=== PATIENT | female | born 1965 | race Caucasian/White ===

== ENCOUNTER 2017-03-05 21:06 | Inpatient (IN) | payer MEDICARE ==
[~2017-03-05] VITALS: Ht 160 cm; Wt 127.0 kg
[2017-03-05 21:07] VITALS: BP 183/72; PULSE 65; RESP 16; TEMP 98.1; O2SAT 97
[2017-03-05 22:30] VITALS: RESP 18; O2SAT 98
[2017-03-05] MEDS ORDERED: LANTUS2P SQ (22:40)
[2017-03-05] MEDS ORDERED: CARV3.125 PO (22:40)
[2017-03-05] MEDS ORDERED: VALS1TAB64 PO (22:40)
[2017-03-05] MEDS ORDERED: CLOP75TA PO (22:40)
[2017-03-05] MEDS ORDERED: LYRI150C PO (22:40)
[2017-03-05] MEDS ORDERED: METF1000 PO (22:40)
--- NOTE | 2017-03-05 22:42 | PD ---
HPI Chief Complaint: Skin Problem Time Seen by Provider: 22:07 Travel History International Travel<30 days: No Contact w/Intl Traveler<30days: No Traveled to known affect area: No History of Present Illness HPI The patient is a 52 year old female who presents to the [facility] emergency department with a history of diabetic ulcer on the right foot that she reports that she noticed in the hospital when she got up to walk while she was admitted for a diabetic hyperglycemic event. She reports that she has a known ulcer on the left foot, however she realized that she was bleeding from the right foot and at that time the ulcer was identified. She reports that she has been followed by an orthopedic physician regarding this and on Sunday of this past week a cast was applied. The patient reports that she completed a course of antibiotic approximate 2 weeks ago. She reports that her blood sugar recently has been better controlled with her blood sugar earlier today at 121. The patient reports that she is visiting from [place]. She is here for a convention. The patient is on Plavix for a history of stent placement in 2011. The patient reports that she became concerned today when she noticed that she was bleeding through the bottom of the cast. Otherwise on review of systems, the patient denies any recent fevers or chills, cough, congestion, neck pain, chest pain, shortness of breath, abdominal pain, vomiting, diarrhea, urinary symptoms, or neurologic symptoms. [facility] Past Medical History Narrative Medical The patient's past medical history is significant for peripheral arterial disease status post stent placement in the left leg, history of coronary artery disease status post cardiac stent placement 2, hypertension, diabetes mellitus , hyperlipidemia, obesity, history of ITP status post splenectomy. High Cholesterol: Yes Chest Pain: Yes (CARDIAC STENT) Coronary Artery Disease: Yes Diabetes: Yes Patient Takes Glucophage: No Diminished Hearing: No Hypertension: Yes Tetanus Vaccination: Unknown Influenza Vaccination: No ?: Not Tubal Ligation: Yes Past Surgical History Narrative Surgical The patient's past surgical history is significant for tonsillectomy, appendectomy, cholecystectomy, splenectomy related to ITP, reconstruction of bilateral ankles, right knee meniscus repair, bilateral tubal ligation, cardiac catheterization with 2 stents placed, discectomy times to lumbar region, left leg stent, amputation of 2 toes on the right foot in October 2014, one and a half toes amputated on the left foot in April 2015. Appendectomy: Yes Cholecystectomy: Yes Tonsillectomy: Yes Other Surgery: Yes (DISCECTOMY, SPLEEN REMOVED) Social History Alcohol Use: No Tobacco Use: No (quit smoking after smoking a pack a day for 30 pack years) Substance Use: No Allergies-Medications (Allergen,Severity, Reaction): Coded Allergies: Bactrim (Verified Allergy, Severe, 03/05/17) Flexeril (Verified Allergy, Severe, 03/05/17) Keflex (Verified Allergy, Severe, 03/05/17) Vancomycin (Verified Allergy, Severe, 03/05/17) Reported Meds & Prescriptions Reported Meds & Active Scripts Active Reported Lantus Inj (Insulin Glargine) 1,000 Unit/10 Ml Vial 75 Units SQ BID Valsartan 80 Mg Tab 80 Mg PO DAILY Clopidogrel (Clopidogrel Bisulfate) 75 Mg Tab 75 Mg PO DAILY Lyrica (Pregabalin) 150 Mg Cap 150 Mg PO BID Metformin (Metformin HCl) 1,000 Mg Tab 1,000 Mg PO BIDPC With meals Coreg (Carvedilol) 3.125 Mg Tab 3.125 Mg PO BID Review of Systems Except as stated in HPI: all other systems reviewed are Neg General / Constitutional: No: Fever Eyes: No: Visual changes HENT: No: Headaches Cardiovascular: No: Chest Pain or Discomfort Respiratory: No: Shortness of Breath Gastrointestinal: No: Abdominal Pain Genitourinary: No: Dysuria Musculoskeletal: No: Pain Skin: Positive Other (bleeding from right foot), No Rash Neurologic: No: Weakness Psychiatric: No: Depression Endocrine: No: Polydipsia Hematologic/Lymphatic: No: Easy Bruising Physical Exam Narrative General: The patient is a well-developed well-nourished female in no acute distress. Head and Neck exam: Head is normocephalic atraumatic. Eyes: EOMI, pupils are equal round and reactive to light. Nose: Midline septum with pink mucous membranes Mouth: Dentition unremarkable. Moist mucus membranes. Posterior oropharynx is not erythematous. No tonsillar hypertrophy. Uvula midline. Airway patent. Neck: No palpable lymphadenopathy. No nuchal rigidity. No thyromegaly. Cardiovascular: Regular rate and rhythm without murmurs, gallops, or rubs. Lungs: Clear to auscultation bilaterally. No wheezes, rhonchi, or rales. Abdomen: Soft, without tenderness to palpation in all 4 quadrants of the abdomen. No guarding, rebound, or rigidity. Normal bowel sounds are audible. No tenderness on palpation of McBurney's point. Extremities: No clubbing or cyanosis. The patient has trace to 1+ edema bilateral lower extremities. 2+ pulses in bilateral upper extremities. The left lower extremity has a walking boot in place related to her healing diabetic ulcer on the left. The patient has a cast in place on the right. The patient is noted to have blood seeping through the bottom of the cast. Back: No costovertebral angle tenderness to palpation. Neurologic Exam: Grossly nonfocal. Skin Exam: No rash noted. On examination of the right foot after the cast was removed. There is no active bleeding. The patient has a 4.5 x 5 cm area of ulceration noted. 4-1/2 cm of the area of ulceration is approximately half a centimeter deep into the soft tissue of the foot. There is a foul odor associated with the wound. There is some foot edema. The patient has her second and third toe amputated. Data Data Last Documented VS Vital Signs Date Time Temp Pulse Resp B/P Pulse Ox O2 Delivery O2 Flow Rate FiO2 03/05/17 22:30 18 98 Room Air 03/05/17 21:07 98.1 65 183/72 Orders Complete Blood Count With Diff (03/05/17 22:26) Basic Metabolic Panel (Bmp) (03/05/17 22:26) Prothrombin Time / Inr (Pt) (03/05/17 22:26) Act Partial Throm Time (Ptt) (03/05/17 22:26) C-Reactive Protein (Crp) (03/05/17 22:26) Iv Access Insert/Monitor (03/05/17 22:26) Ecg Monitoring (03/05/17 22:26) Oximetry (03/05/17 22:26) Foot, Complete ([id number]) (03/05/17 23:04) Wound Culture And Gram Stain (03/05/17 23:05) Wound Care (03/05/17 23:06) Mupirocin 2% Oint (Bactroban 2% Oint) (03/05/17 23:15) Blood Culture (03/05/17 23:45) Lactic Acid (03/05/17 23:45) Aztreonam Inj (Azactam Inj) (03/05/17 23:45) Clindamycin Inj (Cleocin Inj) (03/05/17 23:45) Metronidazole 500 Mg Inj (Flagyl 500 Mg (03/05/17 23:45) Sodium Chlor 0.9% 1000 Ml Inj (Ns 1000 M (03/06/17 00:30) Admit Order (Ed Use Only) (03/06/17 00:32) Labs Laboratory Tests Test 03/05/17 03/05/17 23:01 23:59 Prothrombin Time 10.7 SEC Prothromb Time International 1.0 RATIO Ratio Activated Partial 25.7 SEC Thromboplast Time White Blood Count 19.7 TH/MM3 Red Blood Count 4.50 MIL/MM3 Hemoglobin 12.8 GM/DL Hematocrit 40.1 % Mean Corpuscular Volume 89.2 FL Mean Corpuscular Hemoglobin 28.6 PG Mean Corpuscular Hemoglobin 32.0 % Concent Red Cell Distribution Width 14.8 % Platelet Count 438 TH/MM3 Mean Platelet Volume 10.1 FL Neutrophils (%) (Auto) 59.5 % Lymphocytes (%) (Auto) 29.9 % Monocytes (%) (Auto) 7.2 % Eosinophils (%) (Auto) 2.5 % Basophils (%) (Auto) 0.9 % Neutrophils # (Auto) 11.7 TH/MM3 Lymphocytes # (Auto) 5.9 TH/MM3 Monocytes # (Auto) 1.4 TH/MM3 Eosinophils # (Auto) 0.5 TH/MM3 Basophils # (Auto) 0.2 TH/MM3 CBC Comment AUTO DIFF Differential Total Cells 100 Counted Neutrophils % (Manual) 62 % Band Neutrophils % 5 % Lymphocytes % 25 % Monocytes % 7 % Eosinophils % 1 % Neutrophils # (Manual) 13.2 TH/MM3 Differential Comment FINAL DIFF MANUAL Toxic Vacuolation PRESENT Platelet Estimate NORMAL Platelet Morphology Comment ENLARGED Sodium Level 134 MEQ/L Potassium Level 6.0 MEQ/L Chloride Level 103 MEQ/L Carbon Dioxide Level 28.0 MEQ/L Anion Gap 3 MEQ/L Blood Urea Nitrogen 36 MG/DL Creatinine 1.27 MG/DL Estimat Glomerular Filtration 44 ML/MIN Rate Random Glucose 274 MG/DL Calcium Level 9.3 MG/DL C-Reactive Protein 1.40 MG/DL Lactic Acid Level 1.2 mmol/L MDM Medical Decision Making Medical Screen Exam Complete: Yes Emergency Medical Condition: Yes Medical Record Reviewed: Yes Interpretation(s) Last Impressions Foot X-Ray 03/05/17 9345 Signed Impressions: Service Date/Time: Sunday, March 05, 2017 23:18 - CONCLUSION: 1. There is a wound on the plantar aspect of the foot. There is no adjacent soft tissue air or foreign body visualized. 2. Severe dorsal and medial foot soft tissue swelling. 3. There are degenerative changes throughout the hindfoot and midfoot with likely disruption of the Lisfranc joint. Kenney Mendes MD Differential Diagnosis Coagulopathy associated with bleeding, versus bleeding wound related to increased time on her feet, versus infection Narrative Course During the course of the patients emergency department visit, the patients history, examination, and differential diagnosis were reviewed with the patient. The patient had IV access obtained and blood work sent for analysis. The patient was placed on a gymnastics coach or instructor with oximetry and blood pressure monitoring. The compliance field technician was called to remove the patient's cast. Once the cast was removed the patient's wound was noted to be odorous. The patient's wound was weeping and a wound culture was collected. The patient's wound will be rewrapped after Bactroban ointment is applied The patient was initially provided metronidazole 500 mg IV, clindamycin 900 mg IV, Azactam 2 g IV given her allergy history. The patient was given normal saline 1 L IV fluid bolus per The patients laboratory studies were reviewed and remarkable for a white count of 19.7, hemoglobin 12.8, platelets 438 with neutrophils 62, bands 5, lymphocytes 25, toxic vacuolization is present. Basic metabolic profile is remarkable for sodium of 134, potassium 6.0 with slight hemolysis, BUN 36, creatinine 1.27, glucose 274, lactic acid 1.2, C-reactive protein 1.4, PT 10.7, PTT 25.7. Radiology studies were reviewed and remarkable for an x-ray of the right foot that shows there is a wound on the plantar aspect of the foot. There is no adjacent soft tissue air or foreign body visualized, severe dorsal and medial soft tissue foot swelling is noted. There are degenerative changes throughout the hindfoot and midfoot with likely disruption of the Lisfranc joint. The patients results were discussed with the patient, including the plan of care. I explained that further testing and/ or monitoring is indicated based on the patients history, examination, and/ or laboratory findings. Therefore, I recommended admission for additional evaluation. The patient expressed understanding and was agreeable with this plan. The patient was admitted to the hospital in stable condition and [facility] Sepsis Criteria SIRS Criteria (2 or more): WBC > 91193, < 4000 or > 10% bands Physician Communication Physician Communication The patient's case was discussed with Dr. Sal who did agree to admit the patient for further evaluation and treatment at this time. Diagnosis Primary Impression: Foot ulcer due to secondary DM Additional Impression: Infected ulcer of skin Qualified Code: L98.492 - Infected ulcer of skin, with fat layer exposed Admitting Information Admitting Physician Requests: Admit Nahomi Kwon MD Mar 05, 2017 22:42
[2017-03-05] MEDS ORDERED: MUPIROCIN 2% OINT 22 GM TUBE TOPICAL ONE (23:15)
[2017-03-05 23:39] LABS: AUTOMATED NEUTROPHIL # 11.7 TH/MM3 (1.8-7.7); BASOPHIL # 0.2 TH/MM3 (0-0.2); BASOPHIL % 0.9 % (0.0-2.0); EOSINOPHIL # 0.5 TH/MM3 (0-0.4); EOSINOPHIL % 2.5 % (0.0-4.0); HEMATOCRIT 40.1 % (35.0-46.0); LYMPH % 29.9 % (9.0-44.0); LYMPHOCYTE # 5.9 TH/MM3 (1.0-4.8); MEAN CELL VOLUME 89.2 FL (80.0-100.0); MEAN CORPUSCULAR HEMOGLOBIN 28.6 PG (27.0-34.0); MONO % 7.2 % (0.0-8.0); NEUT % 59.5 % (16.0-70.0); PLATELET COUNT 438 TH/MM3 (150-450); RED CELL DISTRIBUTION WIDTH 14.8 % (11.6-17.2); WHITE BLOOD COUNT 19.7 TH/MM3 (4.0-11.0)
[2017-03-05 23:42] LABS: HEMO FLAGS AUTO DIFF
[2017-03-05] MEDS ORDERED: CLINDAMYCIN INJ 900 MG in SODIUM CHLORIDE 0.9% INJ 100 ML IV STA (23:45)
[2017-03-05] MEDS ORDERED: AZTREONAM INJ 2,000 MG in SODIUM CHLORIDE 0.9% INJ 100 ML IV STA (23:45)
[2017-03-05] MEDS ORDERED: metroNIDAZOLE 500 MG INJ 100 ML IV STA (23:45)
--- NOTE | 2017-03-05 23:49 | RADRPT ---
EXAM DATE/TIME: 03/05/2017 23:18 [facility] COMPARISON: No previous studies available for comparison. INDICATIONS : Right foot pain and swelling. Patient states she has had an ulcer on the bottom of her foot that has started bleeding. MEDICAL HISTORY : Diabetes mellitus type II. SURGICAL HISTORY : Right foot, second and third digit amputations. ENCOUNTER: Initial ACUITY: 2 days PAIN SCORE: 8/10 LOCATION: Right foot. FINDINGS: 3 views of the right foot demonstrate absence of the second and third digit. Lisfranc joint appears d isrupted. There are degenerative changes throughout the midfoot particularly at the second and third tarsometatarsal joints. There is joint space narrowing and osteophytes at the first metatarsophalange al joint. Soft tissue swelling is present medially along the dorsal aspect of the foot. Skin changes on the plantar aspect likely correlate with the open wound. There is no radiopaque foreign body or so ft tissue air visualized. CONCLUSION: 1. There is a wound on the plantar aspect of the foot. There is no adjacent soft tissue air or foreig n body visualized. 2. Severe dorsal and medial foot soft tissue swelling. 3. There are degenerative changes throughout the hindfoot and midfoot with likely disruption of the L isfranc joint. Kenney Mendes MD on March 05, 2017 at 23:45 Board Certified Radiologist. This report was verified electronically.
[2017-03-05 23:56] LABS: APTT (PATIENT) 25.7 SEC (24.3-30.1); PROTHROMBIN TIME - PATIENT 10.7 SEC (9.8-11.6)
[2017-03-06] VITALS (9 sets, daily range): BP systolic 96–152; BP diastolic 54–81; PULSE 58–77; RESP 16–19; TEMP 98.1–98.3; O2SAT 93–96
[2017-03-06] MEDS ORDERED: SODIUM CHLOR 0.9% 1000 ML INJ 1,000 ML IV ONE (00:30)
[2017-03-06] MEDS ORDERED: NALOXONE HCL 0.4 MG/ML AMP IV PRN (00:45)
[2017-03-06] MEDS ORDERED: SODIUM CHLORIDE 0.9% FLUSH 10 ML FLUSH IV FLUSH PRN (00:45)
[2017-03-06] MEDS ORDERED: DEXTROSE 50% IN WATER 50 ML VIAL(D50) IV PRN (00:45)
[2017-03-06] MEDS ORDERED: GLUCAGON 1 MG/ML VIAL OTHER PRN (00:45)
[2017-03-06 00:52] LABS: BANDS 5 % (0-6); EOSINOPHILS 1 % (0-4); NEUTROPHIL # MANUAL DIFF 13.2 TH/MM3 (1.8-7.7); PLATELET ESTIMATE SMEAR NORMAL (NORMAL); PLATELET MORPHOLOGY ENLARGED (NORMAL); POLYS (SEG NEUTROPHILS) 62 % (16-70); SCAN/DIFF FINAL DIFF MANUAL; WBC DIFF SAMPLE 100
[2017-03-06 00:53] LABS: TOXIC VACUOLATION PRESENT (NONE SEEN)
[2017-03-06 02:28] LABS: BICARBONATE 20.3 MEQ/L (21.0-32.0); POTASSIUM 3.5 MEQ/L (3.5-5.1)
[2017-03-06 02:39] LABS: CALCIUM-PROTEIN CORRECTED 6.8 MG/DL (8.5-10.1)
[2017-03-06] MEDS ORDERED: CALCIUM GLUCONATE 10% 1 GM/10 ML VIAL IV PUSH ONE (03:00)
--- NOTE | 2017-03-06 05:50 | HHI.HP ---
[facility] Phys[facility] Non-Staff Admission Diagnosis Dm foot ulcer infection Diagnoses: Travel History International Travel<30 Days: No Contact w/Intl Traveler <30 Da: No Traveled to Known Affected Are: No History of Present Illness History from patient, ER physician communication, and review of medical records. Patient reported that she came to the hospital because she was having bleeding through her foot cast. She states that about a week ago, she has had debridement of her diabetic ulcer on this left foot in [place] where she is from. She states that after the debridement, cost was placed on the left foot up to knees. She states that the ulcer was getting worse after this with foul smelling discharge which she could smell through the cast. She also started noticing bloody discharge starting yesterday morning. She denies any fever. Denies any other symptoms. Apart from the above, patient denies any recent fever/nausea/vomiting/diarrhea/ urinary burning or pain on urination. She denies any recent hematemesis/hematochezia/melena/hematuria. Patient reports that she is traveling here from [place] by bus line. about 9 hrs bus ride to here - arrived on sunday, yesterday Review of Systems Except as stated in HPI: all other systems reviewed are Neg Past Family Social History Past Medical History htn dm cad s/p stent- 2011 ITP- s/p splenectomy left heel ulcer- healing Past Surgical History left foot ulcer debrided about one week ago coronary angiogram and stenting tonsillectomy appendectomy splenectomy cholecystectomy reconstructive sx on ligaments of both ankles torn miniscus repair right knee amputation of toes bilaterally - right is 2nd and 3rd, left is half of 2nd and all of 3rd tubal ligation Allergies: Coded Allergies: Bactrim (Verified Allergy, Severe, 03/05/17) Flexeril (Verified Allergy, Severe, 03/05/17) Keflex (Verified Allergy, Severe, 03/05/17) Vancomycin (Verified Allergy, Severe, 03/05/17) Family History dm- most members father- heart dx brother- stroke Social History quit smoking 2.5 yrs ago, used to smoke about 1 ppd no drinking etoh no drugs Physical Exam Vital Signs Vital Signs Date Time Temp Pulse Resp B/P Pulse Ox O2 Delivery O2 Flow Rate FiO2 03/06/17 04:30 59 18 96/54 96 Room Air 03/06/17 03:14 66 18 109/55 96 Room Air 03/06/17 02:24 62 18 152/71 96 Room Air 03/06/17 00:00 58 18 139/64 96 Room Air 03/05/17 22:30 18 98 Room Air 03/05/17 21:07 98.1 65 16 183/72 97 Room Air Physical Exam GENERAL: This is a well-nourished, well-developed patient, in no apparent distress. SKIN: redness and sweelling around right foot seen through under the surgical bandage HEAD: Atraumatic. Normocephalic. No temporal or scalp tenderness. EYES: No scleral icterus. No injection or drainage. ENT: Nose without bleeding, purulent drainage or septal hematomaAirway patent. NECK: Trachea midline. No JV CARDIOVASCULAR: Regular rate and rhythm without murmurs, gallops, or rubs. RESPIRATORY: Clear to auscultation. Breath sounds equal bilaterally. No wheezes , rales, or rhonchi. GASTROINTESTINAL: Abdomen soft, non-tender, nondistended. No guarding. MUSCULOSKELETAL: Extremities without clubbing. RLE foot in surgical bandage, foul smelling discharge, RLE in boot NEUROLOGICAL: Awake and alert.Normal speech Laboratory Laboratory Tests Test 03/05/17 03/05/17 03/06/17 23:01 23:59 01:25 Prothrombin Time 10.7 Prothromb Time International 1.0 Ratio Activated Partial 25.7 Thromboplast Time White Blood Count 19.7 Red Blood Count 4.50 Hemoglobin 12.8 Hematocrit 40.1 Mean Corpuscular Volume 89.2 Mean Corpuscular Hemoglobin 28.6 Mean Corpuscular Hemoglobin 32.0 Concent Red Cell Distribution Width 14.8 Platelet Count 438 Mean Platelet Volume 10.1 Neutrophils (%) (Auto) 59.5 Lymphocytes (%) (Auto) 29.9 Monocytes (%) (Auto) 7.2 Eosinophils (%) (Auto) 2.5 Basophils (%) (Auto) 0.9 Neutrophils # (Auto) 11.7 Lymphocytes # (Auto) 5.9 Monocytes # (Auto) 1.4 Eosinophils # (Auto) 0.5 Basophils # (Auto) 0.2 CBC Comment AUTO DIFF Differential Total Cells 100 Counted Neutrophils % (Manual) 62 Band Neutrophils % 5 Lymphocytes % 25 Monocytes % 7 Eosinophils % 1 Neutrophils # (Manual) 13.2 Differential Comment FINAL DIFF MANUAL Toxic Vacuolation PRESENT Platelet Estimate NORMAL Platelet Morphology Comment ENLARGED Sodium Level 134 146 Potassium Level 6.0 3.5 Chloride Level 103 114 Carbon Dioxide Level 28.0 20.3 Anion Gap 3 12 Blood Urea Nitrogen 36 24 Creatinine 1.27 0.96 Estimat Glomerular Filtration 44 61 Rate Random Glucose 274 306 Calcium Level 9.3 5.8 C-Reactive Protein 1.40 Lactic Acid Level 1.2 Protein Corrected Calcium 6.8 Total Protein 4.9 Date/Time Procedure Status Source Growth 03/06/17 00:15 Aerobic Blood Culture Received Blood Peripheral Pending 03/06/17 00:15 Anaerobic Blood Culture Received Blood Peripheral Pending 03/05/17 23:54 Gram Stain Received Wound Foot Pending 03/05/17 23:54 Wound Culture Received Wound Foot Pending Result Diagram: 03/05/17 2301 03/06/17 0125 Imaging Last 48 hours Impressions Foot X-Ray 03/05/17 2304 Signed Impressions: Service Date/Time: Sunday, March 05, 2017 23:18 - CONCLUSION: 1. There is a wound on the plantar aspect of the foot. There is no adjacent soft tissue air or foreign body visualized. 2. Severe dorsal and medial foot soft tissue swelling. 3. There are degenerative changes throughout the hindfoot and midfoot with likely disruption of the Lisfranc joint. Kenney Mendes MD Assessment and Plan Assessment and Plan Impression: Left foot postoperative infectionfailed outpatient therapy Leukocytosis with left shift Electrolytes abnormalitiesinitial hyperkalemia. Second blood draw is suspicious to be lab are from drawing distal to the IV line site. htn dm cad s/p stent- 2011 ITP- s/p splenectomy left heel ulcer- healing Plan: Patient received Azactam, clindamycin, Flagyl in ER. Wound cultures have been sent. Urine culture sent. 2. Will follow-up. Podiatry consult. We'll continue clindamycin for now. Hold off on at the antibiotics , will follow cxs and adjust sliding scale coverage resume home meds DVT prophylaxis with lovenox Discussed Condition With patient, ER MD, nursing staff Physician Certification 2 Midnight Certification Type: Admission for Inpatient Services Order for Inpatient Services The services are ordered in accordance with Medicare regulations or non- Medicare payer requirements, as applicable. In the case of services not specified as inpatient-only, they are appropriately provided as inpatient services in accordance with the 2-midnight benchmark. Estimated LOS (days): 3 days is the estimated time the patient will need to remain in the hospital, assuming treatment plan goals are met and no additional complications. Post-Hospital Plan: Home Rohini Sal MD Mar 06, 2017 05:49
[2017-03-06] MEDS: CLINDAMYCIN INJ 900 MG in SODIUM CHLORIDE 0.9% INJ 100 ML IV SCH ×3 (06:26→18:06)
[2017-03-06] MEDS ORDERED: INSULIN ASPART SUPPLEMENTAL SCALE SQ SCH (07:00)
--- NOTE | 2017-03-06 07:10 | RADRPT ---
EXAM DATE/TIME: 03/06/2017 06:23 [facility] COMPARISON: No previous studies available for comparison. INDICATIONS : Bilateral leg pain. MEDICAL HISTORY : Hypercholesterolemia. Coronary artery disease. Diabetes. SURGICAL HISTORY : Tonsillectomy.Appendectomy. Cholecystectomy.Cardiac stent. Tubal ligation. Bilateral knee surgery. Splenectomy. Discectomy. ENCOUNTER: Initial ACUITY: 1 week PAIN SCORE: 7/10 LOCATION: Bilateral legs. TECHNIQUE: Venous ultrasound of the left and right leg was performed from the inguinal ligament to the proximal calf. Real-time, color Doppler and spectral tracing, compression and augmentation techniques were us ed. FINDINGS: RIGHT LEG: There is normal compressibility of the deep venous system from the inguinal region to the proximal ca lf. No echogenic clot is seen in the lumen of the common femoral, femoral, popliteal, and posterior tibial veins. There is a normal response of the venous system to proximal and distal augmentation an d respiration. Approximate 5.2 cm lymph nodes present nonspecific. LEFT LEG: There is normal compressibility of the deep venous system from the inguinal region to the proximal ca lf. No echogenic clot is seen in the lumen of the common femoral, femoral, popliteal, and posterior tibial veins. There is a normal response of the venous system to proximal and distal augmentation an d respiration. CONCLUSION: No DVT and prominent lymph node in the right groin. Halie Linder MD on March 06, 2017 at 7:08 Board Certified Radiologist. This report was verified electronically.
[2017-03-06 08:05] LABS: BICARBONATE 24.4 MEQ/L (21.0-32.0); POTASSIUM 4.7 MEQ/L (3.5-5.1)
[2017-03-06] MEDS ORDERED: ACETAMINOPHEN/HYDROcodone 325 MG/5 MG TAB PO PRN (08:15)
[2017-03-06] MEDS ORDERED: SENNOSIDES 8.6 MG TAB PO PRN (08:15)
[2017-03-06] MEDS ORDERED: LACTULOSE SYRUP 20 GM/30 ML CUP PO PRN (08:15)
[2017-03-06] MEDS ORDERED: BISACODYL 10 MG SUPP RECTAL PRN (08:15)
[2017-03-06] MEDS ORDERED: ACETAMINOPHEN 325 MG TAB PO PRN ×2 (08:15)
[2017-03-06] MEDS ORDERED: ONDANSETRON HCL 4 MG/2 ML VIAL IVP PRN (08:15)
[2017-03-06] MEDS ORDERED: MAGNESIUM HYDROXIDE SUSP 30 ML CUP PO PRN (08:15)
[2017-03-06] MEDS: CARVEDILOL 3.125 MG TAB PO SCH ×2 (10:08→21:18)
[2017-03-06] MEDS: metFORMIN HCL 500 MG TAB PO SCH ×2 (10:09→18:05)
[2017-03-06] MEDS: SODIUM CHLORIDE 0.9% FLUSH 10 ML FLUSH IV FLUSH SCH ×2 (10:20→21:31)
--- NOTE | 2017-03-06 10:30 | HHI.PR ---
Subjective Remarks Follow-up DFI. Complaining of foot pain. Discussed with RN, dressing change about 3 hours ago. Objective Vitals Vital Signs Date Time Temp Pulse Resp B/P Pulse Ox O2 Delivery O2 Flow Rate FiO2 03/06/17 09:48 72 16 115/60 94 Room Air 03/06/17 06:29 66 18 148/65 95 Room Air 03/06/17 04:30 59 18 96/54 96 Room Air 03/06/17 03:14 66 18 109/55 96 Room Air 03/06/17 02:24 62 18 152/71 96 Room Air 03/06/17 00:00 58 18 139/64 96 Room Air 03/05/17 22:30 18 98 Room Air 03/05/17 21:07 98.1 65 16 183/72 97 Room Air Result Diagram: 03/05/17 2301 03/06/17 0705 Imaging Last Impressions Lower Extremity Ultrasound 03/06/17 0000 Signed Impressions: Service Date/Time: Monday, March 06, 2017 06:23 - CONCLUSION: No DVT and prominent lymph node in the right groin. Halie Linder MD Foot X-Ray 03/05/172303 Signed Impressions: Service Date/Time: Sunday, March 05, 2017 23:18 - CONCLUSION: 1. There is a wound on the plantar aspect of the foot. There is no adjacent soft tissue air or foreign body visualized. 2. Severe dorsal and medial foot soft tissue swelling. 3. There are degenerative changes throughout the hindfoot and midfoot with likely disruption of the Lisfranc joint. Kenney Mendes MD Objective Remarks Well-developed, obese in no distress Skin is warm no rashes HEENT pupils equally reactive to light no jaundice Lungs are clear and equal in expansion Regular rate and rhythm no murmur Abdomen obese soft nontender Bilateral lower extremity pitting edema with slight erythema. Right foot with swelling, redness in the exposed areas with dry dressing Alert and oriented moving all extremities A/P Problem List: (1) Foot ulcer due to secondary DM ICD Code: E13.621 Status: Chronic (2) Infected ulcer of skin ICD Code: L98.499 Status: Chronic Assessment and Plan Diabetic foot infection/Left foot postoperative infectionfailed outpatient therapy. Will add aztreonam patient has cephalosporin allergy, continue IV clindamycin and follow-up cultures. Wound care. Pain management with Lortab and IV morphine. Follow-up podiatry consult left heel ulcer- healing htn. Stable continue Coreg, valsartan and monitor vital signs dm. Restart Lantus and metformin and monitor fingerstick sliding scale coverage cad s/p stent- 2011. Stable denies chest pain restart Plavix when okay by podiatry continue Coreg ITP- s/p splenectomy. Platelet counts adequate DVT prophylaxis with SCD and early ambulation. Hold pharmacological prophylaxis for now secondary to bleeding pending podiatry consult Discharge Planning Not stable for discharge Problem Qualifiers (1) Infected ulcer of skin: Qualified Code: L98.492 - Infected ulcer of skin, with fat layer exposed Carlos Kaur MD Mar 06, 2017 10:30
[2017-03-06] MEDS: LACTOBACILLUS ACIDOPHILUS TAB PO SCH ×3 (11:27→18:06)
[2017-03-06] MEDS: VALSARTAN 80 MG TAB PO SCH (11:27)
[2017-03-06] MEDS: PREGABALIN 75 MG CAP PO SCH ×2 (11:27→21:18)
[2017-03-06] MEDS: DOCUSATE SODIUM 50 MG/SENNA 8.6 MG TAB PO SCH ×2 (11:28→21:00)
[2017-03-06] MEDS ORDERED: MORPHINE SULFATE 8 MG/ML INJ IV PUSH PRN (12:45)
[2017-03-06] MEDS: INSULIN DETEMIR 100 UNITS/ML VIAL SQ SCH ×2 (13:15→21:35)
[2017-03-06] MEDS: INSULIN ASPART SUPPLEMENTAL SCALE SQ SCH ×3 (13:18→21:36)
--- NOTE | 2017-03-06 13:25 | PD.POD.CON ---
Patient Intake Chief Complaint Bilateral foot ulcerations Consult Requested by Dr. Sal Reason for Consult Evaluation and treatment of bilateral foot wounds Primary Care Physician Non-Staff History of Present Illness 52-year-old diabetic female with bilateral Charcot feet presents for bleeding wound of the right arch. Patient states that she was being seen by an orthopedic surgeon in [place]. She has an ulceration on the left heel which is healing. Last week she developed a wound of the right arch which was debrided and purulent drainage expressed. She was placed in a cast and left [place] for [place] for a religion meeting. She started bleeding through her cast and presented to [facility]. She was noted to have deep ulceration on the plantar aspect of the right foot. Her white count is elevated. Culture and sensitivity is pending. Coded Allergies: Bactrim (Verified Allergy, Severe, 03/05/17) Flexeril (Verified Allergy, Severe, 03/05/17) Keflex (Verified Allergy, Severe, 03/05/17) Vancomycin (Verified Allergy, Severe, 03/05/17) Preferred Language to Discuss: Thai Barriers to Learning: None Teaching Method: Discussion Vital Signs Date Time Temp Pulse Resp B/P Pulse Ox O2 Delivery O2 Flow Rate FiO2 03/06/17 09:48 72 16 115/60 94 Room Air 03/06/17 06:29 66 18 148/65 95 Room Air 03/06/17 04:30 59 18 96/54 96 Room Air 03/06/17 03:14 66 18 109/55 96 Room Air 03/06/17 02:24 62 18 152/71 96 Room Air 03/06/17 00:00 58 18 139/64 96 Room Air 03/05/17 22:30 18 98 Room Air 03/05/17 21:07 98.1 65 16 183/72 97 Room Air Pain scale used: 0-10 numeric scale Pain score: 1 Medications Current Medications Mupirocin 1 applic 1 applic ONCE ONCE TOPICAL Last administered on 03/06/17 00:56; Start 03/05/17 at 23:15; Stop 03/05/17 at 23:16; Status DC Aztreonam 2000 mg/ Sodium Chloride 100 ml @ 200 mls/hr ONCE STAT IV Last administered on 03/06/17 02:56; Start 03/05/17 at 23:45; Stop 03/06/17 at 00:14 ; Status DC Clindamycin Phosphate 900 mg/ Sodium Chloride 106 ml @ 200 mls/hr ONCE STAT IV Last administered on 03/06/17 02:10; Start 03/05/17 at 23:45; Stop at 00:16; Status DC Metronidazole 100 ml @ 100 mls/hr ONCE STAT IV Last administered on 00:36; Start 03/05/17 at 23:45; Stop 03/06/17 at 00:44; Status DC Sodium Chloride (NS 1000 ml Inj) 1,000 ml @ 1,000 mls/hr Q1H ONCE IV Last administered on 03/06/17 00:36; Start 03/06/17 at 00:30; Stop 03/06/17 at 01:29 ; Status DC Sodium Chloride (NS Flush) 2 ml UNSCH PRN IV FLUSH FLUSH AFTER USING IV ACCESS ; Start 03/06/17 at 00:45 Sodium Chloride (NS Flush) 2 ml BID IV FLUSH Last administered on 03/06/17 10: 20; Start 03/06/17 at 09:00 Naloxone HCl (Narcan Inj) 0.4 mg UNSCH PRN IV SEE LABEL COMMENTS; Start at 00:45 Dextrose (D50w (Vial) Inj) 50 ml UNSCH PRN IV HYPOGLYCEMIA-SEE COMMENTS; Start 03/06/17 at 00:45 Glucagon (Glucagon Inj) 1 mg UNSCH PRN OTHER HYPOGLYCEMIA-SEE COMMENTS; Start 03/06/17 at 00:45 Insulin Aspart 1 1 ACHS SLIDING SCALE SQ Last administered on 03/06/17 07:39 ; Start 03/06/17 at 07:00; Stop 03/06/17 at 08:17; Status DC Clindamycin Phosphate/Sodium Chloride (Cleocin Inj/NS Inj) 106 ml @ 212 mls/hr Q6H IV Last administered on 03/06/17 06:26; Start 03/06/17 at 06:00 Lactobacillus Acidophilus (Lactinex) 1 tab TID PO Last administered on 11:27; Start 03/06/17 at 09:00 Calcium Gluconate (Calcium Gluconate Inj) 1 gm ONCE ONCE IV PUSH Last administered on 03/06/17 04:03; Start 03/06/17 at 03:00; Stop 03/06/17 at 03:01 ; Status DC Insulin Aspart (NovoLOG SUPPLEMENTAL SCALE) 1 ACHS SLIDING SCALE SQ ; Start at 11:00 Acetaminophen (Tylenol) 650 mg Q4H PRN PO TEMP > 100.4; Start 03/06/17 at 08:15 Ondansetron HCl (Zofran Inj) 4 mg Q6H PRN IVP NAUSEA OR VOMITING; Start at 08:15 Acetaminophen (Tylenol) 650 mg Q6H PRN PO PAIN SCALE 1 TO 2; Start 03/06/17 at 08:15 Acetaminophen/ Hydrocodone Bitart ([place] 5-325 Mg) 1 tab Q4H PRN PO PAIN SCALE 3 TO 5; Start 03/06/17 at 08:15 Acetaminophen/ Hydrocodone Bitart ([place] 7.5-325 Mg) 1 tab Q4H PRN PO PAIN SCALE 6 TO 10; Start 03/06/17 at 08:15 Senna/Docusate Sodium (Sheila-Colace) 1 tab BID PO Last administered on 11:28; Start 03/06/17 at 09:00 Magnesium Hydroxide (Milk Of Magnesia Liq) 30 ml Q12H PRN PO MILD - MODERATE CONSTIPATION; Start 03/06/17 at 08:15 Sennosides (Senokot) 17.2 mg Q12H PRN PO MODERATE - SEVERE CONSTIPATION; Start 03/06/17 at 08:15 Bisacodyl (Dulcolax Supp) 10 mg DAILY PRN RECTAL SEVERE CONSITIPATION; Start at 08:15 Lactulose (Lactulose Liq) 30 ml DAILY PRN PO SEVERE CONSITIPATION; Start at 08:15 Carvedilol (Coreg) 3.125 mg BID PO Last administered on 03/06/17 10:08; Start 03/06/17 at 09:00 Insulin Detemir (Levemir Inj) 75 units BID SQ Last administered on 03/06/17 13 :15; Start 03/06/17 at 11:00 Metformin HCl (Glucophage) 1,000 mg BIDPC PO Last administered on 03/06/17 10: 09; Start 03/06/17 at 09:00 Pregabalin (Lyrica) 150 mg BID PO Last administered on 03/06/17 11:27; Start 03/06/17 at 09:00 Valsartan (Diovan) 80 mg DAILY PO Last administered on 03/06/17 11:27; Start 03/06/17 at 09:00 Morphine Sulfate 1 mg 1 mg Q4H PRN IV PUSH breakthru pain; Start 03/06/17 at 12 :45; Stop 03/06/17 at 12:56; Status DC Aztreonam/Sodium Chloride (Azactam Inj/NS Inj) 100 ml @ 200 mls/hr Q8H IV ; Start 03/06/17 at 14:00 Morphine Sulfate (Morphine Inj) 1 mg Q4H PRN IV PUSH breakthru pain; Start at 12:56 Past, Family & Social History Past Medical History PFSH Reviewed: Yes Endocrine: REPORTS HX OF: Diabetes mellitus Past Surgical History Musculoskeletal: REPORTS HX OF: Other musculoskeletal srg Review of Systems Cardiovascular: COMPLAINS OF: Swelling legs / ankles Musculoskeletal: COMPLAINS OF: Deformaties Neurological: COMPLAINS OF: Numbness/tingling, Changes in sensation Exam-Podiatry Constitutional General appearance: comfortable Nutritional status: overweight Orientation: alert and oriented x3 Dermatological Exam Skin Temp - Right: Within Normal Limits Skin Texture - Right: Within Normal Limits Skin Elasticity - Right: Within Normal Limits Skin Tugor - Right: Within Normal Limits Hair Growth - Right: Within Normal Limits Pigmentation - Right: Within Normal Limits Skin Temp - Left: Within Normal Limits Skin Texture - Left: Within Normal Limits Skin Elasticity - Left: Within Normal Limits Skin Tugor - Left: Within Normal Limits Hair Growth - Left: Within Normal Limits Pigmentation - Left: Within Normal Limits Ulcers: Location/Measurements There is a small superficial ulcer of the left posterior heel without signs of infection or cellulitis. There is a large ulceration in the arch of the right foot which probes deep. It measures oxygen late 5 cm x 5 cm. There is bloody drainage coming from the wound. There is no local erythema. Vascular/Lymphatic Exam R Dorsails Pedis: Palpable L Dorsails Pedis: Palpable R Posterior Tibial: Palpable L Posterior Tibial: Palpable Neurologic Exam Present on right: Tingling, Anesthesia Present on left: Tingling, Anesthesia Musculoskeletal Exam Details Bilateral Charcot deformities of both feet Lab and Radiology Results Laboratory Laboratory Tests Test 03/05/17 23:01 White Blood Count 19.7 TH/MM3 Red Blood Count 4.50 MIL/MM3 Hemoglobin 12.8 GM/DL Hematocrit 40.1 % Mean Corpuscular Volume 89.2 FL Mean Corpuscular Hemoglobin 28.6 PG Mean Corpuscular Hemoglobin 32.0 % Concent Red Cell Distribution Width 14.8 % Platelet Count 438 TH/MM3 Mean Platelet Volume 10.1 FL Neutrophils (%) (Auto) 59.5 % Lymphocytes (%) (Auto) 29.9 % Monocytes (%) (Auto) 7.2 % Eosinophils (%) (Auto) 2.5 % Basophils (%) (Auto) 0.9 % Neutrophils # (Auto) 11.7 TH/MM3 Lymphocytes # (Auto) 5.9 TH/MM3 Monocytes # (Auto) 1.4 TH/MM3 Eosinophils # (Auto) 0.5 TH/MM3 Basophils # (Auto) 0.2 TH/MM3 CBC Comment AUTO DIFF Differential Total Cells 100 Counted Neutrophils % (Manual) 62 % Band Neutrophils % 5 % Lymphocytes % 25 % Monocytes % 7 % Eosinophils % 1 % Neutrophils # (Manual) 13.2 TH/MM3 Differential Comment FINAL DIFF MANUAL Toxic Vacuolation PRESENT Platelet Estimate NORMAL Platelet Morphology Comment ENLARGED Laboratory Tests Test 03/05/17 03/05/17 03/06/17 03/06/17 23:01 23:59 01:25 07:05 Sodium Level 134 MEQ/L 146 MEQ/L 141 MEQ/L Potassium Level 6.0 MEQ/L 3.5 MEQ/L 4.7 MEQ/L Chloride Level 103 MEQ/L 114 MEQ/L 109 MEQ/L Carbon Dioxide Level 28.0 MEQ/L 20.3 MEQ/L 24.4 MEQ/L Anion Gap 3 MEQ/L 12 MEQ/L 8 MEQ/L Blood Urea Nitrogen 36 MG/DL 24 MG/DL 29 MG/DL Creatinine 1.27 MG/DL 0.96 MG/DL 0.98 MG/DL Estimat Glomerular Filtration 44 ML/MIN 61 ML/MIN 59 ML/MIN Rate Random Glucose 274 MG/DL 306 MG/DL 196 MG/DL Calcium Level 9.3 MG/DL 5.8 MG/DL 8.8 MG/DL C-Reactive Protein 1.40 MG/DL Lactic Acid Level 1.2 mmol/L Protein Corrected Calcium 6.8 MG/DL Total Protein 4.9 GM/DL Microbiology Date/Time Procedure Status Source Growth 03/05/17 23:54 Gram Stain - Final Resulted Wound Foot 03/05/17 23:54 Wound Culture Resulted Wound Foot Pending 03/05/17 23:59 Aerobic Blood Culture Received Blood Peripheral Pending 03/05/17 23:59 Anaerobic Blood Culture Received Blood Peripheral Pending 03/06/17 00:15 Aerobic Blood Culture Received Blood Peripheral Pending 03/06/17 00:15 Anaerobic Blood Culture Received Blood Peripheral Pending Radiology Last Impressions Lower Extremity Ultrasound 03/06/17 0000 Signed Impressions: Service Date/Time: Monday, March 06, 2017 06:23 - CONCLUSION: No DVT and prominent lymph node in the right groin. Halie Linder MD Foot X-Ray 03/05/176 Signed Impressions: Service Date/Time: Sunday, March 05, 2017 23:18 - CONCLUSION: 1. There is a wound on the plantar aspect of the foot. There is no adjacent soft tissue air or foreign body visualized. 2. Severe dorsal and medial foot soft tissue swelling. 3. There are degenerative changes throughout the hindfoot and midfoot with likely disruption of the Lisfranc joint. Kenney Mendes MD Assessment/Plan Problem List: (1) Foot ulcer due to secondary DM Status: Chronic (2) Infected ulcer of skin Status: Chronic (3) Charcot foot due to diabetes mellitus Status: Chronic Additional Plans & Procedures PLAN: Ordered a Maxorb extra AG dressings to the feet. [facility]. Patient to be nonweightbearing right foot. Follow during the course of this admission. Problem Qualifiers (1) Infected ulcer of skin: Qualified Code: L98.492 - Infected ulcer of skin, with fat layer exposed Anson Montoya DPM Mar 06, 2017 13:25
[2017-03-06] MEDS: ACETAMINOPHEN/HYDROcodone 325 MG/7.5 MG TAB PO PRN ×2 (16:14→22:53)
[2017-03-06] MEDS: AZTREONAM INJ 1,000 MG in SODIUM CHLORIDE 0.9% INJ 100 ML IV SCH ×2 (17:24→21:18)
[2017-03-07] VITALS: BP 138/63; PULSE 73; RESP 19; TEMP 98.3; O2SAT 96
[2017-03-07] MEDS: CLINDAMYCIN INJ 900 MG in SODIUM CHLORIDE 0.9% INJ 100 ML IV SCH ×4 (01:34→17:42)
[2017-03-07 04:00] VITALS: BP 129/59; PULSE 65; RESP 18; RESP 19; TEMP 98.3; O2SAT 94
[2017-03-07] MEDS: AZTREONAM INJ 1,000 MG in SODIUM CHLORIDE 0.9% INJ 100 ML IV SCH ×3 (06:25→22:36)
[2017-03-07] MEDS: INSULIN ASPART SUPPLEMENTAL SCALE SQ SCH ×4 (06:32→21:00)
[2017-03-07 08:00] VITALS: BP 159/83; PULSE 62; PULSE 65; RESP 16; TEMP 98.3; O2SAT 94
[2017-03-07 08:59] LABS: BASOPHIL # 0.1 TH/MM3 (0-0.2); BASOPHIL % 0.6 % (0.0-2.0); EOSINOPHIL # 0.8 TH/MM3 (0-0.4); EOSINOPHIL % 4.7 % (0.0-4.0); HEMATOCRIT 36.7 % (35.0-46.0); LYMPH % 38.9 % (9.0-44.0); LYMPHOCYTE # 6.8 TH/MM3 (1.0-4.8); MEAN CELL VOLUME 89.1 FL (80.0-100.0); MEAN CORPUSCULAR HEMOGLOBIN 28.4 PG (27.0-34.0); MEAN CORPUSCULAR HGB CONC 31.9 % (32.0-36.0); MONO % 10.1 % (0.0-8.0); NEUT % 45.7 % (16.0-70.0); PLATELET COUNT 360 TH/MM3 (150-450); RED BLOOD COUNT 4.12 MIL/MM3 (4.00-5.30); RED CELL DISTRIBUTION WIDTH 14.6 % (11.6-17.2); WHITE BLOOD COUNT 17.4 TH/MM3 (4.0-11.0)
[2017-03-07 09:05] LABS: HEMO FLAGS AUTO DIFF
[2017-03-07] MEDS: metFORMIN HCL 500 MG TAB PO SCH ×2 (09:23→17:43)
[2017-03-07] MEDS: LACTOBACILLUS ACIDOPHILUS TAB PO SCH ×3 (09:23→17:44)
[2017-03-07 09:24] LABS: BICARBONATE 24.4 MEQ/L (21.0-32.0); POTASSIUM 4.6 MEQ/L (3.5-5.1)
[2017-03-07] MEDS: CARVEDILOL 3.125 MG TAB PO SCH ×2 (09:24→22:36)
[2017-03-07] MEDS: VALSARTAN 80 MG TAB PO SCH (09:24)
[2017-03-07] MEDS: DOCUSATE SODIUM 50 MG/SENNA 8.6 MG TAB PO SCH ×2 (09:24→21:00)
[2017-03-07] MEDS: SODIUM CHLORIDE 0.9% FLUSH 10 ML FLUSH IV FLUSH SCH ×2 (09:24→22:37)
[2017-03-07] MEDS: PREGABALIN 75 MG CAP PO SCH ×2 (09:24→22:36)
[2017-03-07] MEDS: INSULIN DETEMIR 100 UNITS/ML VIAL SQ SCH ×2 (09:36→22:47)
[2017-03-07 10:16] LABS: BANDS 1 % (0-6); EOSINOPHILS 6 % (0-4); NEUTROPHIL # MANUAL DIFF 9.2 TH/MM3 (1.8-7.7); POLYS (SEG NEUTROPHILS) 52 % (16-70); WBC DIFF SAMPLE 100
[2017-03-07 10:17] LABS: ACANTHOCYTES 1+ (NORMAL); CRENATED RBCS 1+ (NORMAL); PLATELET ESTIMATE SMEAR NORMAL (NORMAL); PLATELET MORPHOLOGY NORMAL (NORMAL); SCAN/DIFF FINAL DIFF MANUAL
[2017-03-07] MEDS: ACETAMINOPHEN/HYDROcodone 325 MG/7.5 MG TAB PO PRN ×3 (11:23→23:25)
[2017-03-07 12:00] VITALS: BP 151/67; PULSE 68; RESP 16; TEMP 98.2; O2SAT 94
--- NOTE | 2017-03-07 12:23 | PD.POD ---
Subjective Podiatric Problems Patient presents with a Charcot foot of the right with breakdown and ulceration. She is visiting from [place] and presented with bleeding through his cast Pain scale used: 0-10 numeric scale Pain score: 1 Remarks 52-year-old diabetic female with Charcot feet bilaterally states she had an abscess I&D last week in [place]. She is placed in a cast and came to [place]. She had bleeding through her casket when I saw her yesterday the ulceration on the plantar aspect of her right arch was necrotic and the period ordered a [facility] labeled white blood cell scan. The first half of the scan was done yesterday the final scan will be done today. Past Med/Surg/Social History Past Medical History PFSH Reviewed: Yes Endocrine: REPORTS HX OF: Diabetes mellitus Past Surgical History Musculoskeletal: REPORTS HX OF: Other musculoskeletal srg Social History Smoking Status: Former Smoker Review of Systems Notes No changes in her 14 point review systems exam since yesterday Objective Vital Signs Vital Signs Date Time Temp Pulse Resp B/P Pulse Ox O2 Delivery O2 Flow Rate FiO2 03/07/17 08:15 Room Air 03/07/17 04:00 98.3 65 18 129/59 94 03/07/17 04:00 Room Air 03/07/17 00:00 98.3 73 19 138/63 96 03/07/17 00:00 Room Air 03/06/17 20:00 76 03/06/17 20:00 98.1 68 19 147/81 94 03/06/17 20:00 Room Air 03/06/17 16:00 98.1 77 18 134/60 94 03/06/17 13:58 98.3 72 18 133/63 93 Coded Allergies: Bactrim (Verified Allergy, Severe, 03/05/17) Flexeril (Verified Allergy, Severe, 03/05/17) Keflex (Verified Allergy, Severe, 03/05/17) Vancomycin (Verified Allergy, Severe, 03/05/17) Medications and IVs Current Medications Mupirocin 1 applic 1 applic ONCE ONCE TOPICAL Last administered on 03/06/17 00:56; Start 03/05/17 at 23:15; Stop 03/05/17 at 23:16; Status DC Aztreonam 2000 mg/ Sodium Chloride 100 ml @ 200 mls/hr ONCE STAT IV Last administered on 03/06/17 02:56; Start 03/05/17 at 23:45; Stop 03/06/17 at 00:14 ; Status DC Clindamycin Phosphate 900 mg/ Sodium Chloride 106 ml @ 200 mls/hr ONCE STAT IV Last administered on 03/06/17 02:10; Start 03/05/17 at 23:45; Stop at 00:16; Status DC Metronidazole 100 ml @ 100 mls/hr ONCE STAT IV Last administered on 00:36; Start 03/05/17 at 23:45; Stop 03/06/17 at 00:44; Status DC Sodium Chloride (NS 1000 ml Inj) 1,000 ml @ 1,000 mls/hr Q1H ONCE IV Last administered on 03/06/17 00:36; Start 03/06/17 at 00:30; Stop 03/06/17 at 01:29 ; Status DC Sodium Chloride (NS Flush) 2 ml UNSCH PRN IV FLUSH FLUSH AFTER USING IV ACCESS ; Start 03/06/17 at 00:45 Sodium Chloride (NS Flush) 2 ml BID IV FLUSH Last administered on 03/07/17 09: 24; Start 03/06/17 at 09:00 Naloxone HCl (Narcan Inj) 0.4 mg UNSCH PRN IV SEE LABEL COMMENTS; Start at 00:45 Dextrose (D50w (Vial) Inj) 50 ml UNSCH PRN IV HYPOGLYCEMIA-SEE COMMENTS; Start 03/06/17 at 00:45 Glucagon (Glucagon Inj) 1 mg UNSCH PRN OTHER HYPOGLYCEMIA-SEE COMMENTS; Start 03/06/17 at 00:45 Insulin Aspart 1 1 ACHS SLIDING SCALE SQ Last administered on 03/06/17 07:39 ; Start 03/06/17 at 07:00; Stop 03/06/17 at 08:17; Status DC Clindamycin Phosphate/Sodium Chloride (Cleocin Inj/NS Inj) 106 ml @ 212 mls/hr Q6H IV Last administered on 03/07/17 11:24; Start 03/06/17 at 06:00 Lactobacillus Acidophilus (Lactinex) 1 tab TID PO Last administered on 11:24; Start 03/06/17 at 09:00 Calcium Gluconate (Calcium Gluconate Inj) 1 gm ONCE ONCE IV PUSH Last administered on 03/06/17 04:03; Start 03/06/17 at 03:00; Stop 03/06/17 at 03:01 ; Status DC Insulin Aspart (NovoLOG SUPPLEMENTAL SCALE) 1 ACHS SLIDING SCALE SQ Last administered on 03/07/17 11:00; Start 03/06/17 at 11:00 Acetaminophen (Tylenol) 650 mg Q4H PRN PO TEMP > 100.4; Start 03/06/17 at 08:15 Ondansetron HCl (Zofran Inj) 4 mg Q6H PRN IVP NAUSEA OR VOMITING; Start at 08:15 Acetaminophen (Tylenol) 650 mg Q6H PRN PO PAIN SCALE 1 TO 2; Start 03/06/17 at 08:15 Acetaminophen/ Hydrocodone Bitart ([place] 5-325 Mg) 1 tab Q4H PRN PO PAIN SCALE 3 TO 5; Start 03/06/17 at 08:15 Acetaminophen/ Hydrocodone Bitart ([place] 7.5-325 Mg) 1 tab Q4H PRN PO PAIN SCALE 6 TO 10 Last administered on 03/07/17 11:23; Start 03/06/17 at 08:15 Senna/Docusate Sodium (Sheila-Colace) 1 tab BID PO Last administered on 09:24; Start 03/06/17 at 09:00 Magnesium Hydroxide (Milk Of Magnesia Liq) 30 ml Q12H PRN PO MILD - MODERATE CONSTIPATION; Start 03/06/17 at 08:15 Sennosides (Senokot) 17.2 mg Q12H PRN PO MODERATE - SEVERE CONSTIPATION; Start 03/06/17 at 08:15 Bisacodyl (Dulcolax Supp) 10 mg DAILY PRN RECTAL SEVERE CONSITIPATION; Start at 08:15 Lactulose (Lactulose Liq) 30 ml DAILY PRN PO SEVERE CONSITIPATION; Start at 08:15 Carvedilol (Coreg) 3.125 mg BID PO Last administered on 03/07/17 09:24; Start 03/06/17 at 09:00 Insulin Detemir (Levemir Inj) 75 units BID SQ Last administered on 03/07/17 09 :36; Start 03/06/17 at 11:00 Metformin HCl (Glucophage) 1,000 mg BIDPC PO Last administered on 03/07/17 09: 23; Start 03/06/17 at 09:00 Pregabalin (Lyrica) 150 mg BID PO Last administered on 03/07/17 09:24; Start 03/06/17 at 09:00 Valsartan (Diovan) 80 mg DAILY PO Last administered on 03/07/17 09:24; Start 03/06/17 at 09:00 Morphine Sulfate 1 mg 1 mg Q4H PRN IV PUSH breakthru pain; Start 03/06/17 at 12 :45; Stop 03/06/17 at 12:56; Status DC Aztreonam/Sodium Chloride (Azactam Inj/NS Inj) 100 ml @ 200 mls/hr Q8H IV Last administered on 03/07/17 06:25; Start 03/06/17 at 14:00 Morphine Sulfate (Morphine Inj) 1 mg Q4H PRN IV PUSH breakthru pain; Start at 12:56 Other Results Laboratory Tests Test 03/05/17 03/07/17 23:01 07:10 White Blood Count 19.7 TH/MM3 17.4 TH/MM3 Red Blood Count 4.50 MIL/MM3 4.12 MIL/MM3 Hemoglobin 12.8 GM/DL 11.7 GM/DL Hematocrit 40.1 % 36.7 % Mean Corpuscular Volume 89.2 FL 89.1 FL Mean Corpuscular Hemoglobin 28.6 PG 28.4 PG Mean Corpuscular Hemoglobin 32.0 % 31.9 % Concent Red Cell Distribution Width 14.8 % 14.6 % Platelet Count 438 TH/MM3 360 TH/MM3 Mean Platelet Volume 10.1 FL 9.8 FL Neutrophils (%) (Auto) 59.5 % 45.7 % Lymphocytes (%) (Auto) 29.9 % 38.9 % Monocytes (%) (Auto) 7.2 % 10.1 % Eosinophils (%) (Auto) 2.5 % 4.7 % Basophils (%) (Auto) 0.9 % 0.6 % Neutrophils # (Auto) 11.7 TH/MM3 8.0 TH/MM3 Lymphocytes # (Auto) 5.9 TH/MM3 6.8 TH/MM3 Monocytes # (Auto) 1.4 TH/MM3 1.8 TH/MM3 Eosinophils # (Auto) 0.5 TH/MM3 0.8 TH/MM3 Basophils # (Auto) 0.2 TH/MM3 0.1 TH/MM3 CBC Comment AUTO DIFF AUTO DIFF Differential Total Cells 100 100 Counted Neutrophils % (Manual) 62 % 52 % Band Neutrophils % 5 % 1 % Lymphocytes % 25 % 32 % Monocytes % 7 % 9 % Eosinophils % 1 % 6 % Neutrophils # (Manual) 13.2 TH/MM3 9.2 TH/MM3 Differential Comment FINAL DIFF FINAL DIFF MANUAL MANUAL Toxic Vacuolation PRESENT Platelet Estimate NORMAL NORMAL Platelet Morphology Comment ENLARGED NORMAL Atypical Lymphocytes % Crenated Cell 1+ Acanthocytes 1+ Laboratory Tests Test 03/05/17 03/05/17 03/06/17 03/06/17 23:01 23:59 01:25 07:05 Sodium Level 134 MEQ/L 146 MEQ/L 141 MEQ/L Potassium Level 6.0 MEQ/L 3.5 MEQ/L 4.7 MEQ/L Chloride Level 103 MEQ/L 114 MEQ/L 109 MEQ/L Carbon Dioxide Level 28.0 MEQ/L 20.3 MEQ/L 24.4 MEQ/L Anion Gap 3 MEQ/L 12 MEQ/L 8 MEQ/L Blood Urea Nitrogen 36 MG/DL 24 MG/DL 29 MG/DL Creatinine 1.27 MG/DL 0.96 MG/DL 0.98 MG/DL Estimat Glomerular Filtration 44 ML/MIN 61 ML/MIN 59 ML/MIN Rate Random Glucose 274 MG/DL 306 MG/DL 196 MG/DL Calcium Level 9.3 MG/DL 5.8 MG/DL 8.8 MG/DL C-Reactive Protein 1.40 MG/DL Lactic Acid Level 1.2 mmol/L Protein Corrected Calcium 6.8 MG/DL Total Protein 4.9 GM/DL Test 03/07/17 07:10 Sodium Level 140 MEQ/L Potassium Level 4.6 MEQ/L Chloride Level 108 MEQ/L Carbon Dioxide Level 24.4 MEQ/L Anion Gap 8 MEQ/L Blood Urea Nitrogen 25 MG/DL Creatinine 0.85 MG/DL Estimat Glomerular Filtration 70 ML/MIN Rate Random Glucose 174 MG/DL Calcium Level 9.2 MG/DL Microbiology Date/Time Procedure Status Source Growth 03/05/17 23:54 Gram Stain - Final Resulted Wound Foot 03/05/17 23:54 Wound Culture Resulted Wound Foot Pending 03/05/17 23:59 Aerobic Blood Culture - Preliminary Resulted Blood Peripheral NO GROWTH IN 1 DAY 03/05/17 23:59 Anaerobic Blood Culture - Preliminary Resulted Blood Peripheral NO GROWTH IN 1 DAY 03/06/17 00:15 Aerobic Blood Culture - Preliminary Resulted Blood Peripheral NO GROWTH IN 1 DAY 03/06/17 00:15 Anaerobic Blood Culture - Preliminary Resulted Blood Peripheral NO GROWTH IN 1 DAY Exam-Podiatry Constitutional General appearance: comfortable Nutritional status: overweight Orientation: alert and oriented x3 Dermatological Exam Skin Temp - Right: Within Normal Limits Skin Texture - Right: Within Normal Limits Skin Elasticity - Right: Within Normal Limits Skin Tugor - Right: Within Normal Limits Hair Growth - Right: Within Normal Limits Pigmentation - Right: Within Normal Limits Skin Temp - Left: Within Normal Limits Skin Texture - Left: Within Normal Limits Skin Elasticity - Left: Within Normal Limits Skin Tugor - Left: Within Normal Limits Hair Growth - Left: Within Normal Limits Pigmentation - Left: Within Normal Limits Ulcers: Location/Measurements Superficial ulceration of the left posterior heel. Deep large ulceration of the right arch. Vascular/Lymphatic Exam R Dorsails Pedis: Palpable L Dorsails Pedis: Palpable R Posterior Tibial: Palpable L Posterior Tibial: Palpable Neurologic Exam Present on right: Anesthesia Present on left: Anesthesia Musculoskeletal Exam Details Bilateral Charcot breakdown Muscle Strength Dorsiflexion (Right): Normal Plantarflexion (Right): Normal Inversion (Right): Normal Eversion (Right): Normal Digital (Right): Normal Dorsiflexion (Left): Normal Plantarflexion (Left): Normal Inversion (Left): Normal Eversion (Left): Normal Digital (Left): Normal Foot Range of Motion Dorsiflexion (Right): Normal Plantarflexion (Right): Normal Inversion (Right): Normal Eversion (Right): Normal Digital (Right): Normal Dorsiflexion (Left): Normal Plantarflexion (Left): Normal Inversion (Left): Normal Eversion (Left): Normal Digital (Left): Normal Joint Instability Present (Right): Pes Planus Present (Left): Pes Planus Assessment & Plan Diagnosis: (1) Foot ulcer due to secondary DM Status: Chronic (2) Charcot foot due to diabetes mellitus Status: Chronic (3) Infected ulcer of skin Status: Chronic A/P PLAN: Await results of [facility] bone scan to determine further treatment if needed. We 'll continue to follow. Problem Qualifiers (1) Infected ulcer of skin: Qualified Code: L98.492 - Infected ulcer of skin, with fat layer exposed Anson Montoya DPM Mar 07, 2017 12:23
[2017-03-07] MEDS: MORPHINE SULFATE 4 MG/ML INJ IV PUSH PRN ×2 (14:10→20:05)
--- NOTE | 2017-03-07 14:51 | HHI.PR ---
Subjective Remarks F/U [facility]. Worried her transport will leave on Sunday and she is not ready for dc. Here for convention. If surgery recommended she will request 2nd opinion arlyn RN Objective Vitals Vital Signs Date Time Temp Pulse Resp B/P Pulse Ox O2 Delivery O2 Flow Rate FiO2 03/07/17 08:15 Room Air 03/07/17 04:00 98.3 65 18 129/59 94 03/07/17 04:00 Room Air 03/07/17 00:00 98.3 73 19 138/63 96 03/07/17 00:00 Room Air 03/06/17 20:00 76 03/06/17 20:00 98.1 68 19 147/81 94 03/06/17 20:00 Room Air 03/06/17 16:00 98.1 77 18 134/60 94 I/O 03/06/17 03/06/17 03/06/17 03/07/17 03/07/17 03/07/17 06:59 14:59 22:59 06:59 14:59 22:59 Intake Total 580 ml 440 ml Output Total 1000 ml Balance 580 ml -560 ml Intake Oral 480 ml 240 ml IV Total 100 ml 200 ml Output Urine Total 1000 ml # Voids 0 Result Diagram: 03/07/17 0710 03/07/17 0710 Imaging Last Impressions Lower Extremity Ultrasound 03/06/17 0000 Signed Impressions: Service Date/Time: Monday, March 06, 2017 06:23 - CONCLUSION: No DVT and prominent lymph node in the right groin. KOlga Linder MD Foot X-Ray 03/05/17 [id number] Signed Impressions: Service Date/Time: Sunday, March 05, 2017 23:18 - CONCLUSION: 1. There is a wound on the plantar aspect of the foot. There is no adjacent soft tissue air or foreign body visualized. 2. Severe dorsal and medial foot soft tissue swelling. 3. There are degenerative changes throughout the hindfoot and midfoot with likely disruption of the Lisfranc joint. Kenney Mendes MD Objective Remarks Well-developed, obese in no distress Skin is warm no rashes HEENT pupils equally reactive to light no jaundice Lungs are clear and equal in expansion Regular rate and rhythm no murmur Abdomen obese soft nontender Bilateral lower extremity with improved pitting edema and erythema. Right foot with swelling, redness in the exposed areas with dry dressing Alert and oriented moving all extremities Procedures none A/P Problem List: (1) Foot ulcer due to secondary DM ICD Code: E13.621 Status: Chronic (2) Infected ulcer of skin ICD Code: L98.499 Status: Chronic Assessment and Plan Diabetic foot infection/right foot postoperative infectionfailed outpatient therapy. Pending WBC scan. Ct aztreonam( patient has cephalosporin allergy) and IV clindamycin and follow-up cultures. Wound care. Pain management with Lortab and IV morphine. Follow-up podiatry left heel ulcer- healing htn. Stable continue Coreg, valsartan and monitor vital signs dm. Hyperglycemic 2/2 infection. Increase metformin to [address] Lantus and monitor fingerstick sliding scale coverage cad s/p stent- 2011. Stable denies chest pain restart Plavix when okay by podiatry continue Coreg ITP- s/p splenectomy. Platelet counts adequate DVT prophylaxis with SCD and early ambulation. Hold pharmacological prophylaxis for now secondary to bleeding pending WBC scan Discharge Planning Not stable for discharge Problem Qualifiers (1) Infected ulcer of skin: Qualified Code: L98.492 - Infected ulcer of skin, with fat layer exposed Carlos Kaur MD Mar 07, 2017 14:51
--- NOTE | 2017-03-07 14:52 | HHI.DCPOC ---
Discharge Care Plan Diagnosis: (1) Foot ulcer due to secondary DM Your Health Problems Are: Difficulty with ADL Exercise Tolerance Goals to Promote Your Health * To prevent worsening of your condition and complications * To maintain your health at the optimal level Directions to Meet Your Goals Take your medications as prescribed Follow your dietary instruction Follow activity as directed Keep your appointments as scheduled Take your immunizations and boosters as scheduled If your symptoms worsen call your PCP, if no PCP go to Urgent Care Center or Emergency Room Smoking is Dangerous to Your Health. Avoid second hand smoke Call the 24-hour hour crisis hotline for domestic abuse at Carlos Kaur MD Mar 07, 2017 14:52
[2017-03-07 16:00] VITALS: BP 132/71; PULSE 64; RESP 16; TEMP 97.5; O2SAT 94
[2017-03-07] MEDS ORDERED: metFORMIN HCL 500 MG TAB PO SCH (16:00)
--- NOTE | 2017-03-07 16:06 | RADRPT ---
EXAM DATE/TIME: 03/06/2017 16:41 [place] COMPARISON: No previous studies available for comparison. INDICATIONS : Osteomyelitis. Wound on plantar midfoot of right foot. DOSE: 21.2 mCi Tc99m Ceretec labeled white blood cells IV SPECT IMAGIN hrs IMAGNG: SPECT/CT imaging with fusion was performed. RADIATION DOSE: 2.87 CTDIvol (mGy) MEDICAL HISTORY : Hypertension. Diabetes mellitus type 2. Coronary artery disease. SURGICAL HISTORY : Appendectomy. Tonsillectomy. Hysterectomy. Cholecystectomy, bilateral ankle surgery, splenectomy, ca rdiac stenting and disectomy. ENCOUNTER: Initial ACUITY: 1 week PAIN SCALE: 5/10 LOCATION: Right foot. TECHNIQUE: Following the in vitro labeling of autologous white cells and reinjection, whole body scan was perfor med at the specified times. SPECT imaging was performed at the specified time in sagittal, axial and coronal planes. Attenuation correction was performed with the computed tomography and both the atten uation correction and non-attenuation corrected data sets were reviewed. FINDINGS: Intense abnormal white cell accumulation in the medial plantar superficial tissues of the right foot at the level of the mid foot, basically just superficial to the level of the tarsometatarsal joints. CONCLUSION: Abnormal superficial soft tissue uptake in the right foot medial mid foot plantar reg ion Kenney Abreu MD on March 07, 2017 at 16:01 Board Certified Radiologist. This report was verified electronically.
[2017-03-07 20:00] VITALS: BP 162/71; PULSE 75; PULSE 77; RESP 20; TEMP 97.9; O2SAT 96
[2017-03-08] VITALS: BP 154/70; PULSE 97; RESP 20; TEMP 98; O2SAT 97
[2017-03-08] MEDS: ACETAMINOPHEN/HYDROcodone 325 MG/7.5 MG TAB PO PRN ×3 (03:30→12:52)
[2017-03-08 04:00] VITALS: BP 116/71; PULSE 62; RESP 18; TEMP 97.9; O2SAT 94
[2017-03-08] MEDS: AZTREONAM INJ 1,000 MG in SODIUM CHLORIDE 0.9% INJ 100 ML IV SCH ×2 (05:39→15:02)
[2017-03-08] MEDS: CLINDAMYCIN INJ 900 MG in SODIUM CHLORIDE 0.9% INJ 100 ML IV SCH ×4 (05:39→12:48)
[2017-03-08] MEDS: MORPHINE SULFATE 4 MG/ML INJ IV PUSH PRN ×2 (05:39→10:58)
[2017-03-08] MEDS: INSULIN ASPART SUPPLEMENTAL SCALE SQ SCH ×2 (05:41→11:00)
[2017-03-08 08:00] VITALS: BP 163/73; PULSE 65; PULSE 85; RESP 20; TEMP 97.3; O2SAT 94
[2017-03-08] MEDS: metFORMIN HCL 500 MG TAB PO SCH (08:30)
[2017-03-08] MEDS: PREGABALIN 75 MG CAP PO SCH (08:30)
[2017-03-08] MEDS: LACTOBACILLUS ACIDOPHILUS TAB PO SCH ×2 (08:30→12:58)
[2017-03-08] MEDS: DOCUSATE SODIUM 50 MG/SENNA 8.6 MG TAB PO SCH (08:30)
[2017-03-08] MEDS: CARVEDILOL 3.125 MG TAB PO SCH (08:30)
[2017-03-08] MEDS: VALSARTAN 80 MG TAB PO SCH (08:30)
[2017-03-08] MEDS: SODIUM CHLORIDE 0.9% FLUSH 10 ML FLUSH IV FLUSH SCH (08:34)
[2017-03-08] MEDS: INSULIN DETEMIR 100 UNITS/ML VIAL SQ SCH (11:03)
[2017-03-08 12:00] VITALS: BP 171/77; PULSE 66; RESP 18; TEMP 97.4; O2SAT 93
--- NOTE | 2017-03-08 12:39 | PD.POD ---
Subjective Podiatric Problems Patient presents with a Charcot foot of the right with breakdown and ulceration. She is visiting from [place] and presented with bleeding through his cast Pain scale used: 0-10 numeric scale Pain score: 1 Remarks 52-year-old diabetic female with Charcot feet bilaterally states she had an abscess I&D last week in [place]. She is placed in a cast and came to [place]. She had bleeding through her cast when I saw her initially and the ulceration on the plantar aspect of her right arch was necrotic and [facility]. This scan was negative for bone infection. Culture and sensitivities growing out Pseudomonas, strep and mixed anaerobes. She is anxious to get home to [place] and her group is leaving tomorrow morning. Past Med/Surg/Social History Past Medical History [facility] Reviewed: Yes Endocrine: REPORTS HX OF: Diabetes mellitus Past Surgical History Musculoskeletal: REPORTS HX OF: Other musculoskeletal srg Social History Smoking Status: Former Smoker Review of Systems Notes No changes in her 14 point review of systems exam since yesterday Objective Vital Signs Vital Signs Date Time Temp Pulse Resp B/P Pulse Ox O2 Delivery O2 Flow Rate FiO2 03/08/17 08:00 97.3 65 20 163/73 94 03/08/17 04:00 97.9 62 18 116/71 94 03/08/17 04:00 Room Air 03/08/17 00:00 Room Air 03/08/17 00:00 98.0 97 20 154/70 97 03/07/17 20:00 97.9 75 20 162/71 96 03/07/17 20:00 77 03/07/17 20:00 Room Air 03/07/17 16:00 97.5 64 16 132/71 94 03/07/17 16:00 Room Air Coded Allergies: Bactrim (Verified Allergy, Severe, 03/05/17) Flexeril (Verified Allergy, Severe, 03/05/17) Keflex (Verified Allergy, Severe, 03/05/17) Vancomycin (Verified Allergy, Severe, 03/05/17) Medications and IVs Current Medications Mupirocin 1 applic 1 applic ONCE ONCE TOPICAL Last administered on 03/06/17t 00:56; Start 03/05/17 at 23:15; Stop 03/05/17 at 23:16; Status DC Aztreonam 2000 mg/ Sodium Chloride 100 ml @ 200 mls/hr ONCE STAT IV Last administered on 03/06/17 02:56; Start 03/05/17 at 23:45; Stop 03/06/17 at 00:14 ; Status DC Clindamycin Phosphate 900 mg/ Sodium Chloride 106 ml @ 200 mls/hr ONCE STAT IV Last administered on 03/06/17 02:10; Start 03/05/17 at 23:45; Stop at 00:16; Status DC Metronidazole 100 ml @ 100 mls/hr ONCE STAT IV Last administered on 00:36; Start 03/05/17 at 23:45; Stop 03/06/17 at 00:44; Status DC Sodium Chloride (NS 1000 ml Inj) 1,000 ml @ 1,000 mls/hr Q1H ONCE IV Last administered on 03/06/17 00:36; Start 03/06/17 at 00:30; Stop 03/06/17 at 01:29 ; Status DC Sodium Chloride (NS Flush) 2 ml UNSCH PRN IV FLUSH FLUSH AFTER USING IV ACCESS ; Start 03/06/17 at 00:45 Sodium Chloride (NS Flush) 2 ml BID IV FLUSH Last administered on 03/08/17 08: 34; Start 03/06/17 at 09:00 Naloxone HCl (Narcan Inj) 0.4 mg UNSCH PRN IV SEE LABEL COMMENTS; Start at 00:45 Dextrose (D50w (Vial) Inj) 50 ml UNSCH PRN IV HYPOGLYCEMIA-SEE COMMENTS; Start 03/06/17 at 00:45 Glucagon (Glucagon Inj) 1 mg UNSCH PRN OTHER HYPOGLYCEMIA-SEE COMMENTS; Start 03/06/17 at 00:45 Insulin Aspart 1 1 ACHS SLIDING SCALE SQ Last administered on 03/06/17 07:39 ; Start 03/06/17 at 07:00; Stop 03/06/17 at 08:17; Status DC Clindamycin Phosphate/Sodium Chloride (Cleocin Inj/NS Inj) 106 ml @ 212 mls/hr Q6H IV Last administered on 03/08/17 05:39; Start 03/06/17 at 06:00 Lactobacillus Acidophilus (Lactinex) 1 tab TID PO Last administered on 08:30; Start 03/06/17 at 09:00 Calcium Gluconate (Calcium Gluconate Inj) 1 gm ONCE ONCE IV PUSH Last administered on 03/06/17 04:03; Start 03/06/17 at 03:00; Stop 03/06/17 at 03:01 ; Status DC Insulin Aspart (NovoLOG SUPPLEMENTAL SCALE) 1 ACHS SLIDING SCALE SQ Last administered on 03/07/17 17:47; Start 03/06/17 at 11:00 Acetaminophen (Tylenol) 650 mg Q4H PRN PO TEMP > 100.4; Start 03/06/17 at 08:15 Ondansetron HCl (Zofran Inj) 4 mg Q6H PRN IVP NAUSEA OR VOMITING; Start at 08:15 Acetaminophen (Tylenol) 650 mg Q6H PRN PO PAIN SCALE 1 TO 2; Start 03/06/17 at 08:15 Acetaminophen/ Hydrocodone Bitart ([place] 5-325 Mg) 1 tab Q4H PRN PO PAIN SCALE 3 TO 5; Start 03/06/17 at 08:15 Acetaminophen/ Hydrocodone Bitart ([place] 7.5-325 Mg) 1 tab Q4H PRN PO PAIN SCALE 6 TO 10 Last administered on 03/08/17 08:37; Start 03/06/17 at 08:15 Senna/Docusate Sodium ([place]-Colace) 1 tab BID PO Last administered on 08:30; Start 03/06/17 at 09:00 Magnesium Hydroxide (Milk Of Magnesia Liq) 30 ml Q12H PRN PO MILD - MODERATE CONSTIPATION; Start 03/06/17 at 08:15 Sennosides (Senokot) 17.2 mg Q12H PRN PO MODERATE - SEVERE CONSTIPATION; Start 03/06/17 at 08:15 Bisacodyl (Dulcolax Supp) 10 mg DAILY PRN RECTAL SEVERE CONSITIPATION; Start at 08:15 Lactulose (Lactulose Liq) 30 ml DAILY PRN PO SEVERE CONSITIPATION; Start at 08:15 Carvedilol (Coreg) 3.125 mg BID PO Last administered on 03/08/17 08:30; Start 03/06/17 at 09:00 Insulin Detemir (Levemir Inj) 75 units BID SQ Last administered on 03/08/17 11 :03; Start 03/06/17 at 11:00 Metformin HCl (Glucophage) 1,000 mg BIDPC PO Last administered on 03/08/17 08: 30; Start 03/06/17 at 09:00 Pregabalin (Lyrica) 150 mg BID PO Last administered on 03/08/17 08:30; Start 03/06/17 at 09:00 Valsartan (Diovan) 80 mg DAILY PO Last administered on 03/08/17 08:30; Start 03/06/17 at 09:00 Morphine Sulfate 1 mg 1 mg Q4H PRN IV PUSH breakthru pain; Start 03/06/17 at 12 :45; Stop 03/06/17 at 12:56; Status DC Aztreonam/Sodium Chloride (Azactam Inj/NS Inj) 100 ml @ 200 mls/hr Q8H IV Last administered on 03/08/17 05:39; Start 03/06/17 at 14:00 Morphine Sulfate (Morphine Inj) 1 mg Q4H PRN IV PUSH breakthru pain Last administered on 03/08/17 10:58; Start 03/06/17 at 12:56 Metformin HCl (Glucophage) 500 mg DAILY@15 PO Last administered on 03/07/17 17 :43; Start 03/07/17 at 16:00 Other Results Laboratory Tests Test 03/07/17 07:10 White Blood Count 17.4 TH/MM3 Red Blood Count 4.12 MIL/MM3 Hemoglobin 11.7 GM/DL Hematocrit 36.7 % Mean Corpuscular Volume 89.1 FL Mean Corpuscular Hemoglobin 28.4 PG Mean Corpuscular Hemoglobin 31.9 % Concent Red Cell Distribution Width 14.6 % Platelet Count 360 TH/MM3 Mean Platelet Volume 9.8 FL Neutrophils (%) (Auto) 45.7 % Lymphocytes (%) (Auto) 38.9 % Monocytes (%) (Auto) 10.1 % Eosinophils (%) (Auto) 4.7 % Basophils (%) (Auto) 0.6 % Neutrophils # (Auto) 8.0 TH/MM3 Lymphocytes # (Auto) 6.8 TH/MM3 Monocytes # (Auto) 1.8 TH/MM3 Eosinophils # (Auto) 0.8 TH/MM3 Basophils # (Auto) 0.1 TH/MM3 CBC Comment AUTO DIFF Differential Total Cells 100 Counted Neutrophils % (Manual) 52 % Band Neutrophils % 1 % Lymphocytes % 32 % Monocytes % 9 % Eosinophils % 6 % Neutrophils # (Manual) 9.2 TH/MM3 Differential Comment FINAL DIFF MANUAL Atypical Lymphocytes % Platelet Estimate NORMAL Platelet Morphology Comment NORMAL Crenated Cell 1+ Acanthocytes 1+ Laboratory Tests Test 03/07/17 07:10 Sodium Level 140 MEQ/L Potassium Level 4.6 MEQ/L Chloride Level 108 MEQ/L Carbon Dioxide Level 24.4 MEQ/L Anion Gap 8 MEQ/L Blood Urea Nitrogen 25 MG/DL Creatinine 0.85 MG/DL Estimat Glomerular Filtration 70 ML/MIN Rate Random Glucose 174 MG/DL Calcium Level 9.2 MG/DL Microbiology Date/Time Procedure Status Source Growth 03/05/17 23:54 Gram Stain - Final Complete Wound Foot 03/05/17 23:54 Wound Culture - Final Complete Pseudomonas Aeruginosa Group B Beta Strep Mixed Anaerobes 03/05/17 23:59 Aerobic Blood Culture - Preliminary Resulted Blood Peripheral NO GROWTH IN 2 DAYS 03/05/17 23:59 Anaerobic Blood Culture - Preliminary Resulted Blood Peripheral NO GROWTH IN 2 DAYS 03/06/17 00:15 Aerobic Blood Culture - Preliminary Resulted Blood Peripheral NO GROWTH IN 2 DAYS 03/06/17 00:15 Anaerobic Blood Culture - Preliminary Resulted Blood Peripheral NO GROWTH IN 2 DAYS Exam-Podiatry Constitutional General appearance: comfortable Nutritional status: overweight Orientation: alert and oriented x3 Dermatological Exam Skin Temp - Right: Within Normal Limits Skin Texture - Right: Within Normal Limits Skin Elasticity - Right: Within Normal Limits Skin Tugor - Right: Within Normal Limits Hair Growth - Right: Within Normal Limits Pigmentation - Right: Within Normal Limits Skin Temp - Left: Within Normal Limits Skin Texture - Left: Within Normal Limits Skin Elasticity - Left: Within Normal Limits Skin Tugor - Left: Within Normal Limits Hair Growth - Left: Within Normal Limits Pigmentation - Left: Within Normal Limits Ulcers: Location/Measurements Ulceration on the plantar aspect of the right arch consistent with Charcot breakdown. Vascular/Lymphatic Exam R Dorsails Pedis: Palpable L Dorsails Pedis: Palpable R Posterior Tibial: Palpable L Posterior Tibial: Palpable Neurologic Exam Present on right: Anesthesia Present on left: Anesthesia Musculoskeletal Exam Details Bilateral Charcot deformities Muscle Strength Dorsiflexion (Right): Normal Plantarflexion (Right): Normal Inversion (Right): Normal Eversion (Right): Normal Digital (Right): Normal Dorsiflexion (Left): Normal Plantarflexion (Left): Normal Inversion (Left): Normal Eversion (Left): Normal Digital (Left): Normal Foot Range of Motion Dorsiflexion (Right): Normal Plantarflexion (Right): Normal Inversion (Right): Normal Eversion (Right): Normal Digital (Right): Normal Dorsiflexion (Left): Normal Plantarflexion (Left): Normal Inversion (Left): Normal Eversion (Left): Normal Digital (Left): Normal Assessment & Plan Diagnosis: (1) Foot ulcer due to secondary DM Status: Chronic (2) Charcot foot due to diabetes mellitus Status: Chronic (3) Infected ulcer of skin Status: Chronic A/P PLAN: Patient anxious to get home to [place]. Okay to discharge from a podiatry standpoint if cleared by medicine. Patient can be discharged on Levaquin and clindamycin. She is to follow up immediately with her orthopedic surgeon when she gets back to [place]. Problem Qualifiers (1) Infected ulcer of skin: Qualified Code: L98.492 - Infected ulcer of skin, with fat layer exposed Anson Montoya DPM Mar 08, 2017 12:39
[2017-03-08] MEDS ORDERED: LEVA750T9 PO (17:28)
[2017-03-08] MEDS ORDERED: CLIN1CAP5 PO (17:28)
[2017-03-08] MEDS ORDERED: HYDR-3580 PO (17:31)
--- NOTE | 2017-03-08 17:35 | HHI.DS ---
Discharge Summary Admission Date Mar 06, 2017 at 00:34 Discharge Date: Mar 08, 2017 Admitting Diagnosis Dm foot ulcer infection (1) Foot ulcer due to secondary DM ICD Code: E13.621 (2) Infected ulcer of skin ICD Code: L98.499 Procedures none Brief History - From Admission History from patient, ER physician communication, and review of medical records. Patient reported that she came to the hospital because she was having bleeding through her foot cast. She states that about a week ago, she has had debridement of her diabetic ulcer on this left foot in [place] where she is from. She states that after the debridement, cost was placed on the left foot up to knees. She states that the ulcer was getting worse after this with foul smelling discharge which she could smell through the cast. She also started noticing bloody discharge starting yesterday morning. She denies any fever. Denies any other symptoms. Apart from the above, patient denies any recent fever/nausea/vomiting/diarrhea/ urinary burning or pain on urination. She denies any recent hematemesis/hematochezia/melena/hematuria. Patient reports that she is traveling here from [place] by bus line. about 9 hrs bus ride to here - arrived on sunday, yesterday CBC/BMP: 03/07/17 0710 03/07/17 0710 Significant Findings Laboratory Tests Test 03/05/17 03/06/17 03/06/17 03/07/17 23:01 01:25 07:05 07:10 White Blood Count 19.7 TH/MM3 17.4 TH/MM3 (4.0-11.0) (4.0-11.0) Neutrophils # (Auto) 11.7 TH/MM3 8.0 TH/MM3 (1.8-7.7) (1.8-7.7) Lymphocytes # (Auto) 5.9 TH/MM3 6.8 TH/MM3 (1.0-4.8) (1.0-4.8) Monocytes # (Auto) 1.4 TH/MM3 1.8 TH/MM3 (0-0.9) (0-0.9) Eosinophils # (Auto) 0.5 TH/MM3 0.8 TH/MM3 (0-0.4) (0-0.4) Neutrophils # (Manual) 13.2 TH/MM3 9.2 TH/MM3 (1.8-7.7) (1.8-7.7) Toxic Vacuolation PRESENT (NONE SEEN) Platelet Morphology Comment ENLARGED (NORMAL) Sodium Level 134 MEQ/L 146 MEQ/L (136-145) (136-145) Potassium Level 6.0 MEQ/L (3.5-5.1) Anion Gap 3 MEQ/L (5-15) Blood Urea Nitrogen 36 MG/DL (7-18) 24 MG/DL (7-18) 29 MG/DL (7-18) 25 MG/DL (7- 18) Creatinine 1.27 MG/DL (0.50-1.00) Estimat Glomerular Filtration 44 ML/MIN (>89) 61 ML/MIN (>89) 59 ML/MIN (>89) 70 ML/MIN (>89) Rate Random Glucose 274 MG/DL 306 MG/DL 196 MG/DL 174 MG/DL (74-106) (74-106) (74-106) (74-106) C-Reactive Protein 1.40 MG/DL (0.00-0.30) Chloride Level 114 MEQ/L 109 MEQ/L 108 MEQ/L (98-107) (98-107) (98-107) Carbon Dioxide Level 20.3 MEQ/L (21.0-32.0) Calcium Level 5.8 MG/DL (8.5-10.1) Protein Corrected Calcium 6.8 MG/DL (8.5-10.1) Total Protein 4.9 GM/DL (6.4-8.2) Mean Corpuscular Hemoglobin 31.9 % Concent (32.0-36.0) Monocytes (%) (Auto) 10.1 % (0.0-8.0) Eosinophils (%) (Auto) 4.7 % (0.0-4.0) Monocytes % 9 % (0-8) Eosinophils % 6 % (0-4) Crenated Cell 1+ (NORMAL) Acanthocytes 1+ (NORMAL) Imaging Last Impressions Tumor Localization 03/06/17 0000 Signed Impressions: Service Date/Time: Monday, March 06, 2017 16:41 - CONCLUSION: Abnormal superficial soft tissue uptake in the right foot medial mid foot plantar region Kenney Abreu MD Lower Extremity Ultrasound 03/06/17 0000 Signed Impressions: Service Date/Time: Monday, March 06, 2017 06:23 - CONCLUSION: No DVT and prominent lymph node in the right groin. Halie Linder MD Foot X-Ray 03/05/17 2304 Signed Impressions: Service Date/Time: Sunday, March 05, 2017 23:18 - CONCLUSION: 1. There is a wound on the plantar aspect of the foot. There is no adjacent soft tissue air or foreign body visualized. 2. Severe dorsal and medial foot soft tissue swelling. 3. There are degenerative changes throughout the hindfoot and midfoot with likely disruption of the Lisfranc joint. Kenney Mendes MD PE at Discharge Well-developed, obese in no distress Skin is warm no rashes HEENT pupils equally reactive to light no jaundice Lungs are clear and equal in expansion Regular rate and rhythm no murmur Abdomen obese soft nontender Bilateral lower extremity with improved pitting edema and erythema. Right foot with swelling, redness in the exposed areas with dry dressing Alert and oriented moving all extremities Pt update on day of discharge Discussed the case with Dr Cardoso. He cleared patient to be discharged on Levaquin and Clindamycin. Patient denies fevers, chills. Discharge Time: <= 30 minutes Luis Goetz MD Mar 08, 2017 17:35
[2017-03-08] MEDS ORDERED: CLINDAMYCIN 150 MG CAP PO ONE (18:00)
== END 2017-03-08 18:30 | disposition home or self-care (01) | DRG 863 ==
LOC: NEPC 21:06 → NEDA 03-06 00:34 → NEDH 03-06 04:34 → N04A 03-06 13:27
PROVIDERS: ADMIT Family Medicine; ATTEND Family Medicine
DX: T81.4XXA Infection following a procedure, initial encounter (principal); D69.3 Immune thrombocytopenic purpura; E11.610 Type 2 diabetes mellitus with diabetic neuropathic arthropathy; E11.621 Type 2 diabetes mellitus with foot ulcer; Z68.42 Body mass index [BMI] 45.0-49.9, adult; E11.65 Type 2 diabetes mellitus with hyperglycemia; Z79.4 Long term (current) use of insulin; Z79.84 Long term (current) use of oral hypoglycemic drugs; L97.529 Non-pressure chronic ulcer of other part of left foot with unspecified severity; E66.9 Obesity, unspecified; I10 Essential (primary) hypertension; I25.10 Atherosclerotic heart disease of native coronary artery without angina pectoris; Z95.5 Presence of coronary angioplasty implant and graft; Z90.81 Acquired absence of spleen; Z89.422 Acquired absence of other left toe(s); Z89.421 Acquired absence of other right toe(s); Z87.891 Personal history of nicotine dependence; E78.5 Hyperlipidemia, unspecified
CPT/HCPCS: 73630; 78807; 78999; 80048; 82948; 83605; 84155; 85007; 85027; 85610; 85730; 86140; 86403; 87040; 87070; 87077; 87185; 87186; 87205; 93970; A9569; J0610; J1815; J2270; J7030